=== PATIENT | male | born 1995 | race Caucasian/White ===

== ENCOUNTER 2025-07-28 06:57 | Emergency (ER) | payer OTHER, SELFPAY ==
--- NOTE | 2025-07-28 07:09 | ECG_ITS ---
Test Reason : l arm numbness Blood Pressure : */* mmHG Vent. Rate : 75 BPM Atrial Rate : 75 BPM P-R Int : 126 ms QRS Dur : 78 ms QT Int : 372 ms P-R-T Axes : 28 34 27 degrees QTcB Int : 415 ms Normal sinus rhythm Normal ECG No previous ECGs available Referred By: Generic ED Physician Electronically Signed By: Nakul Toussaint
[2025-07-28 07:10] VITALS: BP 134/82; PULSE 86; RESP 18; TEMP 36.9; O2SAT 98; BMI 69.2
--- NOTE | 2025-07-28 07:39 | ED_ITS ---
HPI - General Adult General Chief complaint: General Medical Stated complaint: General Medical, Multiple Complaints Time Seen by Provider: 07/28/25 07:23 Source: patient, family ( at bedside) and RN notes reviewed Mode of arrival: ambulatory Limitations: no limitations History of Present Illness ED Provider: LLOYD Jamison HPI narrative: 30-year-old male without medical history presents to the ED due to 3 months of experiencing episodes of ?panic attacks? where he experiences nausea, cold sweats, left arm numbness and anxiety. Patient states he and his recently moved from [facility] to [facility] for his wifes employment. He also states during this time he stopped smoking cigarettes and marijuana replacing them with vaping. Patient is wondering if this may be causing his symptoms. Patient states his symptoms only occur during these panick attacks and then are relieved when he calms down. Patient and his state he woke up this morning around 530 am feeling sense of impending doom with nausea, cold sweats, and dizziness. Patient states he is still feeling dizzy which is worse when he stands from a lying position. Denies chest pain, SOB, abd pain, diarrhea, black/tarry stools MD complaint: dizziness Related Data Previous Rx's ?Medication ?Instructions ?Recorded diazepam 2 mg tablet (Valium) 2 mg PO ONCE #5 tabs Allergies Allergy/AdvReac Type Severity Reaction Status Date / Time No Known Allergies Allergy Verified 07/28/25 07:13 Review of Systems 2 Review of Systems: CONST: Negative for fever, body aches and chills. HENT: Negative for neck pain/stiffness, headache, congestion, sore throat, swelling. EYES: Negative for discharge/pain or vision changes. RESP: Negative for cough/hemoptysis and shortness of breath. CV: Negative chest pain, difficulty breathing, palpitations. ABD: Negative pain, nausea, vomiting. : Negative increase frequency, dysuria, blood in urine or stool. MUSC: Negative for muscle aches, edema. SKIN: Negative rash, lesions/sores. NEURO: Negative headache, dizziness, weakness. Yes all other systems are reviewed and are negative PMFSH Past Medical History Attestation statement: The following information was validated with the patient. Source: old records reviewed and nursing notes reviewed Medical History No pertinent past medical history Social History Social History Smoked in Last 30 Days: Yes Use of substances other than those prescribed or required for medical reasons: Yes Substance Use Type: Marijuana Advance Directives: No Advance Directives Information Provided: Yes Physical Exam ED Vital Signs: Vital Signs - 24 hr 07/28/25 07:10 Temperature 98.4 F Pulse Rate 86 Respiratory Rate 18 Blood Pressure 134/82 Pulse Oximetry 98 Oxygen Delivery Method Room Air BMI result Body Mass Index 69.2 GENERAL APPEARANCE: ?AxOx4, no acute distress. HEENT: ?NC, AT. MMM. EOMI, clear conjunctiva, oropharynx clear. NECK: ?Supple without lymphadenopathy.? No stiffness or restricted ROM. HEART:? Normal rate and regular rhythm, normal S1/S2, no m/r/g LUNGS:? CTAB, moving air well. No crackles or wheezes are heard. ABDOMEN: ?Soft, nontender, nondistended BACK: No CVAT, no obvious deformity. EXTREMITIES: ?Without cyanosis, clubbing or edema. NEUROLOGICAL: ?Grossly nonfocal. Alert and oriented, moving all 4 extremities. Observed to ambulate with normal gait, is able to heel and toe walk without unsteadiness or difficulty Skin: ?Warm and dry without any rash. Medications Administered Discontinued Medications Generic Name Dose Route Start Last Admin Trade Name Freq PRN Reason Stop Dose Admin Lactated Ringer's 1,000 mls @ 999 mls/hr 07/28/25 08:19 07/28/25 08:48 Lr IV 07/28/25 09:19 999 mls/hr .Q1H1M ONE Administration Meclizine HCl 25 mg 07/28/25 08:19 07/28/25 08:52 Meclizine Hcl 25 Mg Tablet PO 07/28/25 08:20 25 mg ONCE ONE Administration Medical Decision Making Medical Decision Making MDM Narrative: This is a 30-year-old male with no significant medical history. Patient has been experiencing episodes of ?panic attacks?, and sensation of ?impending doom? that is associated with nausea, cold sweats, left arm numbness for the past 3 months after moving from the [facility] to the [facility] for his 's job. Symptoms last while patient is having ?panic attacks? and then are relieved after he comes back down. Additionally during this time patient has stopped smoking tobacco cigarettes and marijuana and replaced it with vaping. Patient does not have a primary care doctor as this time due to his changing employment, they are just getting settled into the area. Patient had a ?panic attack? this morning with dizziness, nausea with the dizziness persisting causing him to seek care in the ED. dizziness is exacerbated when moving positions from a lying to standing position. Additionally, patient is concerned he may be diabetic due to family history. Plan: labs, viral serology, EKG. Patient is being medicated with IV fluids and meclizine for dizziness. EKG reveals normal sinus rhythm without ST-elevation/depression, T-wave abnormality, arrhythmia, lengthened QT Labs with a mild leukocytosis of 11.1 most likely due to stress response, H&H stable, no electrolyte abnormality, mild transaminitis with AST of 50, ALT of 62 HB A1c at 5.6, random serum glucose at 112. Viral serology negative. Patient's dizziness has resolved after IV fluids and meclizine. Repeat physical exam without focal neurological deficits. At this time I believe patient's symptoms are due to anxiety causing panic attacks due to increased life stressors over the last 3 months, when symptoms started occurring. I counseled patient to follow up with the primary care doctor. I have provided referrals for him to become established. Patient will be discharged with 5 tablets of Valium that he can use for rescue medication during panic attacks. I counseled patient on side effects and risks of this medication and counseled him that he should only use this when he feels like his panic attacks are severe enough that he needs to come to the hospital. I counseled patient on strict return precautions including prolonged panic attacks that are not managed with rescue medication of Valium, thoughts of hurting himself or others, or any other concerning symptoms. Patient and his are in agreement with the plan. Differential Diagnosis Differential Diagnoses: The differential diagnosis associated with the presentation includes Panic attack Depression Anxiety Electrolyte abnormality Admission/Observation Consideration of admission/observation: Escalation of care including admission/observation considered Lab Data MDM Lab Attestation statement: I reviewed the patient's lab results. 07/28/25 08:45 07/28/25 08:45 Labs: Lab Results 09/26/25 09/26/25 Range/Units 08:44 08:45 WBC 11.1 H (4.8-10.8) X10*3/uL RBC 5.51 (4.60-5.80) X10*6/uL Hgb 15.5 (14.0-18.0) g/dl Hct 45.8 (42.0-52.0) % MCV 83.1 (80.0-98.0) fL MCH 28.1 (27.0-33.0) pg MCHC 33.8 (31.0-36.0) g/dl RDW 12.4 (11.0-16.0) % Plt Count 276 (160-400) X10*3/uL MPV 9.1 L (9.4-12.4) fL Immature Gran % (Auto) 0.5 H (0.0-0.4) % Neut % (Auto) 66.0 (45-73) % Lymph % (Auto) 24.9 (20-40) % [place] % (Auto) 6.6 (2-11) % Eos % (Auto) 1.5 (0-4) % Baso % (Auto) 0.5 (0-2) % Lymph # (Auto) 2.8 (1.2-4.9) X10*3/uL [place] # (Auto) 0.7 (0.1-1.2) X10*3/uL Eos # (Auto) 0.2 (0.0-0.4) X10*3/uL Baso # (Auto) 0.1 (0.0-0.2) X10*3/uL Abs Immat Gran (auto) 0.05 H (0.00-0.03) X10*3/uL Absolute Neuts (auto) 7.3 (2.0-8.3) x10*3/uL Absolute Nucleated RBC 0.000 (0.0-0.012) X10*3/uL Nucleated RBC % (auto) 0.0 (0.0-0.2) /100WBC Sodium 141 (135-145) mmol/L Potassium 4.6 (3.3-5.1) mmol/L Chloride 105 (96-108) mmol/L Carbon Dioxide 27 (22-29) mmol/L Anion Gap 14 (12-20) BUN 12 (9-16) mg/dL Creatinine 0.90 (0.5-1.4) mg/dL Estim Creat Clear Calc 231.8 Estimated GFR > 60 Random Glucose 112 (60-115) mg/dL Estimat Average Glucose 114 mg/dL Hemoglobin A1c % 5.6 (<6.0) % Calcium 9.3 (8.4-10.2) mg/dL Magnesium 2.1 (1.6-2.6) mg/dL Total Bilirubin 0.5 (0.0-1.0) mg/dL AST 50 H (5-37) U/L ALT 62 H (0-40) U/L Alkaline Phosphatase 89 (39-117) U/L Total Protein 7.3 (6.5-8.0) g/dL Albumin 4.9 (3.5-5.0) g/dL COVID-19 (TOM[facility]S) Negative (Negative) COVID-19 Clin Com See Note Influenza Type A (DENNISE) Negative (Negative) Influenza Type B (DENNISE) Negative (Negative) Influenza A & B Note See Note Independent Interpretation I performed an independent interpretation of an: EKG Interpretation: I personally interpreted the EKG which revealed normal sinus rhythm without ST- elevation/depression, T-wave abnormality, arrhythmia, lengthened QT Vent. Rate : 75 BPM Atrial Rate : 75 BPM P-R Int : 126 ms QRS Dur : 78 ms QT Int : 372 ms P-R-T Axes : 28 34 27 degrees QTcB Int : 415 ms Normal sinus rhythm Normal ECG No previous ECGs available Independent Historian Clinical information obtained from an independent historian. History obtained from or confirmed by: Spouse ( at bedside corroborating history) External Record Review External record reviewed: Inpatient record, Office record and Outpatient record Chronic Conditions Patient?s care impacted by: Other (No known medical history) Discharge Plan Discharge Clinical Impression: Anxiety Instructions: Generalized Anxiety Disorder (ED), Panic Disorder (ED), Anxiety (ED) Additional Instructions: You were evaluated in the ED today due to dizziness, cold sweats, nausea. Your lab work was normal without evidence of anemia or electrolyte abnormality. Your EKG was normal and did not reveal an emergent cardiac process. Your viral swabs including COVID and flu were negative today. Your physical exam was reassuring as you did not have any neurological deficits. You were medicated with IV fluids and meclizine which managed your dizziness. At this time I believe your symptoms may be due to anxiety which causes intense emotion and turns into panic attacks where you experience increased heart rate, impending sense of doom, nausea, and left arm numbness. You need to follow up with the primary care doctor for further evaluation and management of possible anxiety. I will place referral to family Medicine for you, call the numbers provided as they will not call you. I will prescribe you 5 pills of Valium that you can take when you feel like you are experiencing an anxiety attack. Use them in extreme cases only. You can try to manage your anxiety in these intense moments by deep breathing, and sitting in a quiet room. Please return to the emergency department if you experience worsening anxiety where you feel like harming yourself or others, chest pain, shortness a breath, fevers over 100.4?, or any new/worsening/concerning symptoms. Prescriptions: New diazepam [Valium] 2 mg tablet 2 mg PO ONCE Qty: 5 0RF [place] [facility] [place] [facility] [place], Family Practice] [facility] [Provider Group, Family Practice] Mari Hollins NP-C [Nurse Practitioner, Family Practice] Lesley Gamez DO [Physician, Family Practice] Samantha Gentile NP [Nurse Practitioner, Family Practice] [facility] [place] [facility] [facility] [Provider Group, Internal Medicine] Dayna Cannon MD [Physician, Medical] Enma Rose MD [Physician, Internal Medicine] Margaret Estrella NP [Nurse Practitioner, Internal Medicine] Kriss Early PA [Physician Metal Worker, Primary Care] Perico Bueno MD [Physician, Internal Medicine] Print Language: Bolivian
[2025-07-28] MEDS: Lactated Ringers 1,000 ML 999 ML IV (08:48)
[2025-07-28 08:50] LABS: MANUAL DIFF FLAG NO
--- NOTE | 2025-07-28 08:53 | PC.NURSE ---
patient a&ox3, iv inserted, labs drawn, swabs obtained, rr equal/non labored, ivf started per order, pt medicated per order, call castaneda within reach, plan of care ongoing
[2025-07-28 08:56] LABS: Hematocrit 45.8 % (42.0-52.0); Hemoglobin 15.5 g/dl (14.0-18.0); Imm Gran Abs Auto 0.05 X10*3/uL (0.00-0.03); Imm Gran Pct Auto 0.5 % (0.0-0.4); Lymphocytes Absolute Auto 2.8 X10*3/uL (1.2-4.9); Mean Corpuscular HGB Conc 33.8 g/dl (31.0-36.0); Mean Corpuscular Hemoglobin 28.1 pg (27.0-33.0); Mean Corpuscular Volume 83.1 fL (80.0-98.0); NRBC Abs Auto 0.000 X10*3/uL (0.0-0.012); NRBC Pct Auto 0.0 /100WBC (0.0-0.2); Platelet Count 276 X10*3/uL (160-400); Red Blood Count 5.51 X10*6/uL (4.60-5.80); White Blood Count 11.1 X10*3/uL (4.8-10.8)
[2025-07-28 09:10] LABS: COVID-19 Test Negative (Negative); IDNOW Serial# 08D9AD1C; IDNOW Serial# 6674DD1D; Influenza B2 Negative (Negative)
[2025-07-28 09:12] LABS: Alanine Aminotransferase 62 U/L (0-40); Albumin Level 4.9 g/dL (3.5-5.0); Alkaline Phosphatase 89 U/L (39-117); Anion Gap 14 (12-20); Aspartate Amino Transferase 50 U/L (5-37); Blood Urea Nitrogen 12 mg/dL (9-16); Calcium 9.3 mg/dL (8.4-10.2); Carbon Dioxide 27 mmol/L (22-29); Chloride 105 mmol/L (96-108); Creatinine Clr Calc Pharmacy 231.8; Estimated Glomerular Filt Rate > 60; Magnesium 2.1 mg/dL (1.6-2.6); Potassium 4.6 mmol/L (3.3-5.1); Sodium 141 mmol/L (135-145); Total Protein 7.3 g/dL (6.5-8.0)
[2025-07-28 09:13] LABS: Hemoglobin A1C 147.7108 umol/L; Total Hemoglobin (HGBA1C) 3910.3542 umol/L
[2025-07-28 10:50] VITALS: BP 128/88; PULSE 82; RESP 18; TEMP 36.7; O2SAT 98
== END 2025-07-28 10:51 | disposition home or self-care (01) ==
PROVIDERS: Emergency Provider Emergency Medicine Emergency Medical Services
DX: F41.0 Panic disorder [episodic paroxysmal anxiety] (principal); R11.0 Nausea; R20.0 Anesthesia of skin; F41.9 Anxiety disorder, unspecified; F17.290 Nicotine dependence, other tobacco product, uncomplicated; D72.829 Elevated white blood cell count, unspecified; F32.A Depression, unspecified
CPT/HCPCS: 36415; 80053; 83036; 83735; 85025; 87502; 87635; 93005; 96360; 99284; J7120

== ENCOUNTER → 2025-07-28 07:09 | Outpatient (BNV) | payer OTHER, SELFPAY | PROVIDERS: Emergency Provider Emergency Medicine Emergency Medical Services; Visit Provider Internal Medicine Cardiovascular Disease | DX: R20.0 Anesthesia of skin (principal) | CPT/HCPCS: 93010 ==